=== PATIENT | female | born 1985 | race Asian ===

== ENCOUNTER 2016-10-17 00:10 | Inpatient (IN) | payer SELFPAY ==
[~2016-10-17] VITALS: Ht 160 cm; Wt 68.0 kg
[2016-10-17 00:20] VITALS: BP 105/55
[2016-10-17] MEDS ORDERED: LACTATED RINGERS 1,000 ML IV SCH (00:34)
[2016-10-17] MEDS ORDERED: LACTATED RINGERS 500 ML IV SCH (00:35)
[2016-10-17] MEDS ORDERED: PROMETHAZINE 25 MG/ML VIAL IVP PRN (00:35)
[2016-10-17] MEDS ORDERED: OXYTOCIN 20 UNITS/LR PREMIX 1,000 ML IV SCH (00:35)
[2016-10-17] MEDS ORDERED: NALBUPHINE HYDROCHLORIDE 10 MG/ML VIAL IVP PRN (00:35)
[2016-10-17] MEDS ORDERED: OXYTOCIN 10 UNITS/ML VIAL IM SCH (00:35)
[2016-10-17] MEDS ORDERED: ROPIVACAINE 0.2%/NS PREMIX 250 ML EPI ONE (01:48)
[2016-10-17] MEDS ORDERED: ROPIVACAINE 0.2%/NS PREMIX 250 ML EPI SCH (02:05)
[2016-10-17] MEDS ORDERED: OXYTOCIN 20 UNITS/LR PREMIX 1,000 ML IV ONE (02:24)
[2016-10-17] MEDS ORDERED: PRENATAL LOW IR1 TA1 PO (06:29)
[2016-10-17] MEDS ORDERED: OXYTOCIN 10 UNITS/ML VIAL ONE (06:49)
[2016-10-17] MEDS ORDERED: oxyCODONE/APAP 5/325 MG 1 TAB TAB PO PRN (09:10)
[2016-10-17] MEDS ORDERED: IBUPROFEN 800 MG TAB PO PRN (09:10)
[2016-10-17] MEDS ORDERED: MEASLES, MUMPS, AND RUBELLA 1 VIAL SQVAC PRN (09:10)
[2016-10-17] MEDS ORDERED: WITCH HAZEL 40 PAD PACKAGE TP PRN (09:10)
[2016-10-17] MEDS ORDERED: BENZOCAINE/MENTHOL 20%-0.5% 60 GM CAN TP PRN (09:10)
[2016-10-17] MEDS ORDERED: HYDROcodone/APAP 5/325 MG 1 TAB TAB PO PRN (09:10)
[2016-10-17] MEDS ORDERED: TEMAZEPAM 15 MG CAP PO PRN (09:10)
[2016-10-17] MEDS ORDERED: DOCUSATE SOD/SENNA 50/8.6 MG 1 TAB PO SCH (21:00)
--- NOTE | 2016-10-18 12:26 | NUR ---
PATIENT HAS BEEN SCREENED AND CATEGORIZED LOW NUTRITION RISK. PATIENT WILL BE SEEN WITHIN 7 DAYS OF ADMISSION. 10/24/16 AMINAH DAVILA MBA, RD
== END 2016-10-18 16:00 | disposition home or self-care (01) | DRG 775 ==
LOC: MFCC 00:10
PROVIDERS: ADMIT Obstetrics & Gynecology; ATTEND Obstetrics & Gynecology
PROC: 10E0XZZ Delivery of Products of Conception, External Approach (ICD-10-PCS; principal; 2016-10-17)
PROC: 0KQM0ZZ Repair Perineum Muscle, Open Approach (ICD-10-PCS; 2016-10-17)
PROC: 10907ZC Drainage of Amniotic Fluid, Therapeutic from Products of Conception, Via Natural or Artificial Opening (ICD-10-PCS; 2016-10-17)
PROC: 3E0S3CZ (ICD-10-PCS; 2016-10-17)
PROC: 00HU33Z Insertion of Infusion Device into Spinal Canal, Percutaneous Approach (ICD-10-PCS; 2016-10-17)
PROC: 3E0234Z Introduction of Serum, Toxoid and Vaccine into Muscle, Percutaneous Approach (ICD-10-PCS; 2016-10-18)
DX: O69.1XX0 Labor and delivery complicated by cord around neck, with compression, not applicable or unspecified (principal); O70.1 Second degree perineal laceration during delivery; Z3A.39 39 weeks gestation of pregnancy; Z37.0 Single live birth; Z23 Encounter for immunization